=== PATIENT | female | born 1985 | race Hispanic/Latino ===

== ENCOUNTER → 2025-10-13 17:10 | Outpatient (CLI) | payer OTHER, SELFPAY ==
--- NOTE | 2025-10-13 17:11 | DI.US.S_ITS ---
PROCEDURE: US PELVIC COMPLETE INDICATIONS: severe pain with menses TECHNIQUE: Real-time scanning was performed of the pelvic organs, with image documentation. Additional endovaginal scanning was necessary due to incomplete visualization of the adnexal and endometrial structures by transabdominal scanning. COMPARISON: None. FINDINGS: Uterus: Anteverted positioning. Uterus measures 8.5 x 4.4 cm. Endometrium measures 13 mm, at the upper limit of normal for age. Cervical nabothian cysts are seen Ovaries: Right ovary is mildly enlarged measuring 13 mL. There is a complicated 2.1 cm cyst. Left ovary is nonenlarged at 2 mL. Other: No pathologic free fluid IMPRESSION: Mildly enlarged right ovary with a 2.1 cm complicated cyst, likely hemorrhagic. A 1-2 month follow-up ultrasound is reasonable to ensure stability/resolution. Endometrium measures 13 mm, upper limit of normal for age. Dictated by: Arley Cary M.D. on 10/14/2025 at 7:19 Approved by: Arley Cary M.D. on 10/14/2025 at 7:21
== END ==
PROVIDERS: Referring Provider Obstetrics & Gynecology; Visit Provider Obstetrics & Gynecology
DX: N94.4 Primary dysmenorrhea (principal); N83.8 Other noninflammatory disorders of ovary, fallopian tube and broad ligament; N83.201 Unspecified ovarian cyst, right side
CPT/HCPCS: 76830; 76856

== ENCOUNTER → 2025-11-24 16:35 | Outpatient (CLI) | payer OTHER, SELFPAY ==
[2025-11-25 13:40] LABS: Trichomoas vaginalis Negative (Negative)
== END ==
PROVIDERS: Visit Provider Obstetrics & Gynecology
DX: N89.8 Other specified noninflammatory disorders of vagina (principal)
CPT/HCPCS: 81514